=== PATIENT | female | born 1970 | race Hispanic/Latino ===

== ENCOUNTER 2017-01-12 14:04 | Outpatient (CLI) | payer OTHER ==
--- NOTE | 2017-01-12 15:38 | Magnetic Resonance Report ---
MRI OF THE BRAIN WITHOUT CONTRAST: HISTORY: Paresthesia of skin PROCEDURE: Multiplanar, multisequence MR imaging of the brain without IV contrast was performed. FINDINGS: There are minimal nonspecific T2 signal abnormalities in the subcortical white matter of both frontal lobes. This is most likely related to chronic small vessel disease. The remaining brain parenchyma demonstrates normal signal. No evidence for acute ischemia, hemorrhage or mass. No chronic infarct or extra-axial fluid collection. The midline structures are central. The basal cisterns are patent. Normal ventricular size. The orbital cavities and sella turcica demonstrate no abnormality. The visualized paranasal sinuses and mastoid air cells are well aerated. IMPRESSION: Minimal nonspecific chronic white matter changes. These findings are probably within normal limits for this patient's age. Otherwise, unremarkable exam.
--- NOTE | 2017-01-12 16:24 | Magnetic Resonance Report ---
MRI CERVICAL SPINE WITHOUT CONTRAST INDICATION: Cervical disc disorder with radiculopathy. COMPARISON: None similar. FINDINGS: Noncontrast multiplanar and multisequence MRI of the cervical spine demonstrates normal craniocervical articulation and cervicomedullary junction. No Chiari malformation. No abnormal intrinsic cord signal. Normal vertebral body stature and marrow signal, though straightening/slight reversal of usual cervical lordosis noted, possibly positional versus spasm. Normal paraspinal soft tissues. On the obtained axial images: C2-C3 is unremarkable. C3-C4 demonstrates no cord compression or significant neural foraminal narrowing. C4-C5 demonstrates slight disc degeneration and mild disc bulge, more so centrally, approaching the cord in the midline, axial image 16, series 2. AP cord caliber is 0.7 cm. C5-C6 demonstrates mild disc narrowing and diffuse disc bulge with partial ventral CSF effacement, contacting the cord ventrally as on axial image 12, series 2. AP cord caliber is 0.7 cm. C6-C7 and C7-T1 appear within normal limits. CONCLUSION: C4-C5 and C5-C6 degenerative changes, as described. Thank you for the opportunity to participate in this patient's care.
== END 2017-01-12 14:05 | disposition home or self-care (01) ==
LOC: MRI 14:04
PROVIDERS: ATTEND Psychiatry & Neurology Neurology
DX: M50.121 Cervical disc disorder at C4-C5 level with radiculopathy (principal); M47.892 Other spondylosis, cervical region; R20.2 Paresthesia of skin
CPT/HCPCS: 70551; 72141